=== PATIENT | male | born 1950 | race African-American/Black ===

== ENCOUNTER 2022-09-12 13:41 | Emergency (ER) | payer MEDICARE, BC ==
[~2022-09-12] VITALS: Ht 188 cm; Wt 122.0 kg
[~2022-09-12 13:41] MED LIST: ASPIRIN 81 LOW81 MG; CLEOCIN300 MG OR; COZAAR25 MG PO; DARVOCET-N100 MG OR; DIOVAN HC1 PO; DIOVAN160 MG PO; FLONASE NASAL50 MCG; JANUVIA100 MG PO; KAPSPARGO SPRIN50 MG; MAXZIDE PO; MECLIZINE25 M1 PO; METFORMIN HCL500 M1 OR; NORVASC5 MG PO; PRAVACHOL20 MG PO; PRILOSEC20 MG PO; SEPTRA DS1 TAB PO; VITAMIN D-32000 UNI1
[2022-09-12 14:26] VITALS: BP 140/83
[2022-09-12 14:31] VITALS: BP 132/68
[2022-09-12 14:33] VITALS: BP 121/76
[2022-09-12 14:45] VITALS: BP 136/73
[2022-09-12 15:01] VITALS: BP 122/83
[2022-09-12] MEDS ORDERED: PAXLOVID PO (15:02)
[2022-09-12 15:16] VITALS: BP 125/61
== END 2022-09-12 15:32 | disposition home or self-care (01) ==
LOC: ED 13:41
DX: U07.1 COVID-19 (principal); R05.9 Cough, unspecified; J02.9 Acute pharyngitis, unspecified; R51.9 Headache, unspecified; R09.89 Other specified symptoms and signs involving the circulatory and respiratory systems; R52 Pain, unspecified; I10 Essential (primary) hypertension; E11.9 Type 2 diabetes mellitus without complications